=== PATIENT | female | born 1955 | race Caucasian/White ===

== ENCOUNTER 2019-04-26 08:31 | Emergency (ER) | payer OTHER ==
[2019-04-26] MEDS ORDERED: KETOROLAC 60 MG/2 ML VIAL IM STA (08:57)
[2019-04-26] MEDS ORDERED: ONDANSETRON 4 MG/2 ML VIAL IVP STA (08:57)
--- NOTE | 2019-04-26 08:57 | ED Physician Documentation ---
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 No: LOC, AMS, Neck pain, Weakness Symptoms improve with: Nothing Worsens with: Movement Recently seen: Not recently seen - Additional information Additional information: This is a 63-year-old woman who was out walking the dog this morning when she fell and landed on her buttocks on the cement of the sidewalk. This occurred just prior to arrival. She did not fall back and hit her head. She has no pain radiating down her legs but complains of numbness to her feet that is there pretty much chronically although it may be slightly worse now. Denies neck pain. She felt a little nauseous but no vomiting. She is very concerned because she is had 2 prior fusions. She does not have pain medications at home and did not take anything for the pain. Patient was seen last week at [facility] for a urinary tract infection just finished a 5-day course of antibiotics yesterday and is still feeling some urgency. She just recently moved here from [place] and has established with a Dr. Haywood and has a follow-up appointment scheduled with him. Review of Systems : reports: Other (Urgency) Musculoskeletal: reports: Back pain. denies: Neck pain Neurologic: reports: Numbness (Chronic). denies: Focal weakness PD PAST MEDICAL HISTORY - Past Surgical History Ortho: Spine surgery (Fusion) - Present Medications Home Medications: Ambulatory Orders Medication Instructions Recorded Confirmed Acetaminophen/Cod 300/30 [Tylenol 1 each PO Q4-6H #14 tablet 04/26/19 #3] Cyclobenzaprine [Flexeril] 10 mg PO TID PRN #20 tablet 04/26/19 - Allergies Allergies/Adverse Reactions: Allergies Allergy/AdvReac Type Severity Reaction Status Date / Time No Known Drug Allergies Allergy Verified 04/26/19 08:38 PD ED PE NORMAL - Vitals Vital signs reviewed: Yes - General General: Alert and oriented X 3, No acute distress, Well developed/nourished, Other (She looks very anxious, is sitting very still on the exam bed.) - HEENT HEENT: PERRL, Other (No scleral icterus) - Back Back: Other (She has pain with palpation to the paraspinal muscles on either side of her surgical incision in the lower lumbar region.) - Derm Derm: Normal color, Warm and dry, No rash - Extremities Extremities: No deformity, No edema - Neuro Neuro: Alert and oriented X 3, 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, No motor deficit, No sensory deficit, Normal speech, Other (Reflexes could not be elicited in the quadriceps or Achilles bilaterally.) - Psych Psych: Other (Patient appears anxious.) Results - Vitals Vitals: Vital Signs - 24 hr 04/26/19 08:35 Temperature 36.6 C Heart Rate 73 Respiratory 20 Rate Blood Pressure 166/93 H O2 Saturation 100 Oxygen O2 Source Room air - Labs Labs: Laboratory Tests 04/26/19 09:34 Urine Color YELLOW Urine Clarity CLEAR Urine pH 6.0 Ur Specific [place] 1.015 Urine Protein NEGATIVE Urine Glucose (UA) NEGATIVE Urine Ketones NEGATIVE Urine Occult Blood NEGATIVE Urine Nitrite NEGATIVE Urine Bilirubin NEGATIVE Urine Urobilinogen 0.2 (NORMAL) Ur Leukocyte Esterase NEGATIVE Ur Microscopic Review NOT INDICATED Urine Culture Comments NOT INDICATED - Rads (name of study) L-spine Radiology: EMP read contemporaneously (No hardware disruption or fracture) PD MEDICAL DECISION MAKING - ED course Complexity details: reviewed results, d/w patient, d/w family ED course: Her urinalysis was clear. She said she got minimal relief from the Toradol. She has not vomited. She was hoping to avoid narcotics but after discussion we have settled on codeine and she will be given Tylenol with codeine prior to discharge. Will also be prescribed some doses of Tylenol with codeine as well as Flexeril which she has had good relief with in the past. She has a doctor's appointment in just 2 days she should keep that appointment for follow-up. Urine results and imaging were discussed with her. Departure - Departure Disposition: 01 Home, Self Care Clinical Impression: Dysuria Lumbar strain Qualifiers: Encounter type: initial encounter Qualified Code(s): S39.012A - Strain of muscle, fascia and tendon of lower back, initial encounter Instructions: ED Low Back Pain Injury Follow-Up: Sergio Haywood [Primary Care Provider] - Prescriptions: Acetaminophen/Cod 300/30 [Tylenol #3] 1 each PO Q4-6H #14 tablet Cyclobenzaprine [Flexeril] 10 mg PO TID PRN #20 tablet PRN Reason: Spasms Comments: Take the Flexeril if needed for pain. You may also use anti-inflammatories like ibuprofen or Aleve [id number]. You have a prescription for Tylenol 3 if the Flexeril is not helping the pain. Keep your doctor's appointment in 2 days for follow-up.
[2019-04-26] MEDS ORDERED: ONDANSETRON ODT 4 MG TABLET TL STA (09:01)
[2019-04-26 09:42] LABS: BILIRUBIN,URINE NEGATIVE (NEGATIVE); CLARITY,URINE CLEAR (CLEAR); GLUCOSE, URINE (UA) NEGATIVE (NEGATIVE); KETONES,URINE (UA) NEGATIVE (NEGATIVE); LEUKOCYTE ESTERASE, URINE NEGATIVE (NEGATIVE); NITRITE,URINE NEGATIVE (NEGATIVE); OCCULT BLOOD,URINE NEGATIVE (NEGATIVE); PROTEIN,URINE NEGATIVE (NEGATIVE); UROBILINOGEN,URINE 0.2 (NORMAL) E.U./dL (NORMAL)
--- NOTE | 2019-04-26 10:14 | XRAY Report ---
Reason: back pain; fall, prior fusion Procedure Date: 04/26/2019 Accession Number: [id number] / [id number] Procedure: XR - Lumbar Spine 2 View CPT Code: Final Report FULL RESULT: EXAM: LUMBOSACRAL SPINE RADIOGRAPHY EXAM DATE: 04/26/2019 09:52 AM. CLINICAL HISTORY: Acute pain due to trauma. COMPARISONS: None. TECHNIQUE: 2 views. FINDINGS: Alignment: Normal. No spondylolisthesis or scoliosis. Bones: Five [id number]-ydjllak lumbar vertebral bodies are present. No fracture or bone lesion is identified. Posterior fusion hardware at L3-L5 is seen. Notably, right trans-pedicle screw potentially encroaches on the adjacent L2-L3 disk space. Disks: Mild to moderate diffuse degenerative disk disease is seen. There is moderate junctional disease at L2-L3. Facets: There is moderate diffuse degenerative facet disease seen throughout the mid and lower aspect of the lumbar spine. Sacroiliac Joints: Unremarkable. Soft Tissues: Normal. The visualized bowel gas pattern is normal. IMPRESSION: No acute osseous abnormality demonstrated status post L3-L5 posterior fusion. See additional comments above. RADIA
[2019-04-26] MEDS ORDERED: ACETAMINOPHEN/CODEINE 300 MG/30 MG TABLET PO STA (10:24)
[2019-04-26 10:40] VITALS: BP 166/65
== END 2019-04-26 10:39 | disposition home or self-care (01) ==
LOC: ED 08:31
DX: S39.012A Strain of muscle, fascia and tendon of lower back, initial encounter (principal); W01.0XXA Fall on same level from slipping, tripping and stumbling without subsequent striking against object, initial encounter; Y93.K1 Activity, walking an animal; Y92.480 Sidewalk as the place of occurrence of the external cause; R30.0 Dysuria; M51.36 Other intervertebral disc degeneration, lumbar region; Z98.1 Arthrodesis status
CPT/HCPCS: 72100; 81003; 99284; A9270; Q0162; 81001; 87086

== ENCOUNTER 2023-07-30 10:30 | Outpatient (CLI) | payer MEDICARE, OTHER ==
--- NOTE | 2023-07-30 12:49 | XRAY Report ---
PROCEDURE: Chest 2V INDICATIONS: SHORTNESS OF BREATH TECHNIQUE: 2 views of the chest were obtained. COMPARISON: None. FINDINGS: Surgical changes and devices: None. Lungs and pleura: No pleural effusions or pneumothorax. Lungs are clear. Mediastinum: Mediastinal contours appear normal. Heart size is normal. Bones and chest wall: No suspicious bony lesions. Overlying soft tissues appear unremarkable. IMPRESSION: Normal two-view chest x-ray Reviewed by: Feliciano Reis MD on 07/30/2023 11:47 AM [facility] Approved by: Feliciano Reis MD on 07/30/2023 11:47 AM [facility] Station ID: [id number]
== END 2023-07-30 10:45 | disposition home or self-care (01) ==
LOC: DI.N 10:30
PROVIDERS: ATTEND Family Medicine
DX: R06.02 Shortness of breath (principal)